=== PATIENT | male | born 1960 | race Caucasian/White ===

== ENCOUNTER 2021-10-21 03:16 | Inpatient (IN) | payer OTHER ==
[~2021-10-21] VITALS: Ht 182.9 cm; Wt 108.9 kg
[2021-10-21 07:00] LABS: HEMOGLOBIN 15.5 gm/dl (14.0-17.5); RED BLOOD COUNT 4.82 M/UL (4.20-5.50); WHITE BLOOD COUNT 8.9 K/UL (4.5-11.0)
[2021-10-21 07:29] LABS: BUN/CREATININE RATIO 15 (0-10)
[2021-10-21] MEDS ORDERED: GLIPIZIDE ER10 MG PO (14:20)
[2021-10-21] MEDS ORDERED: TIZANIDINE HCL4 MG PO (14:21)
--- NOTE | 2021-10-21 15:16 | NUR ---
1420: PT ARRIVED ON FLOOR AND LEFT ROOM IMMEDIATELY AND REMOVED IV HIMSELF. PT STATES HIS GIRLFRIEND IS ON THE 4TH FLOOR AND HE NEEDS TO BE DOWN THERE WITH HER. 1425: PT CAME BACK TO ROOM AND STATED HE WOULD STAY IN THE ROOM TO GET BP, ADMISSION HISTORY AND TO TALK TO THE DOCTOR. EDUCATED THE PATIENT ON NOT LEAVING THE FLOOR DUE TO SYMPTOMS. 1445: EDUCATED PT ON NOT LEAVING FLOOR DUE TO SYMPTOMS. PT VERBALIZED UNDERSTANDING ANS SEVERITY OF SYMPTOMS. 1512: PT LEFT FLOOR TO SEE HIS GIRLFRIEND ON ANOTHER FLOOR. PT CURRENTLY OFF FLOOR.
[2021-10-22 02:35] LABS: HEMOGLOBIN 15.8 gm/dl (14.0-17.5); RED BLOOD COUNT 4.68 M/UL (4.20-5.50); WHITE BLOOD COUNT 10.9 K/UL (4.5-11.0)
[2021-10-22 03:12] LABS: BUN/CREATININE RATIO 14 (0-10)
--- NOTE | 2021-10-22 17:30 | NUR ---
1724:Pt had 7BR of nonsustained SVT. MD notified.
[2021-10-24 04:23] LABS: HEMOGLOBIN 17.1 gm/dl (14.0-17.5); RED BLOOD COUNT 5.07 M/UL (4.20-5.50); WHITE BLOOD COUNT 11.9 K/UL (4.5-11.0)
[2021-10-24 04:54] LABS: BUN/CREATININE RATIO 21 (0-10)
[2021-10-24] MEDS ORDERED: ATORVASTATIN CA20 MG PO (17:30)
[2021-10-24] MEDS ORDERED: ASPIRIN EC81 MG PO (17:30)
[2021-10-24] MEDS ORDERED: LOPRESSOR 25 MG25 MG PO (17:30)
[2021-10-24 23:15] LABS: HEMOGLOBIN 15.7 gm/dl (14.0-17.5); RED BLOOD COUNT 4.67 M/UL (4.20-5.50); WHITE BLOOD COUNT 14.5 K/UL (4.5-11.0)
[2021-10-24 23:36] LABS: BUN/CREATININE RATIO 24 (0-10)
[2021-10-25 02:34] LABS: HEMOGLOBIN 15.2 gm/dl (14.0-17.5); RED BLOOD COUNT 4.57 M/UL (4.20-5.50); WHITE BLOOD COUNT 13.1 K/UL (4.5-11.0)
[2021-10-25 03:20] LABS: BUN/CREATININE RATIO 28 (0-10)
[2021-10-25] MEDS ORDERED: AMOX TR-K CLV1 EAC4 PO (08:25)
[2021-10-25] MEDS ORDERED: ATORVASTATIN CA20 MG PO (08:25)
[2021-10-25] MEDS ORDERED: BRILINTA 90 MG90 MG PO (08:25)
[2021-10-25] MEDS ORDERED: CARVEDILOL3.125 MG PO (08:25)
[2021-10-26] MEDS ORDERED: CEFUROXIME500 MG PO (16:43)
== END 2021-10-25 14:18 | disposition home or self-care (01) | DRG 246 ==
LOC: ER1 03:16 → CDU 12:36 → M/S 12:36 → PROG CARE 10-24 16:22
PROVIDERS: Internal Medicine Interventional Cardiology; Physician Assistant; ADMIT Internal Medicine
PROC: B24BZZZ Ultrasonography of Heart with Aorta (ICD-10-PCS; 2021-10-22)
PROC: 027034Z Dilation of Coronary Artery, One Artery with Drug-eluting Intraluminal Device, Percutaneous Approach (ICD-10-PCS; principal; 2021-10-24)
PROC: 4A023N7 Measurement of Cardiac Sampling and Pressure, Left Heart, Percutaneous Approach (ICD-10-PCS; 2021-10-24)
PROC: B2111ZZ Fluoroscopy of Multiple Coronary Arteries using Low Osmolar Contrast (ICD-10-PCS; 2021-10-24)
DX: I21.4 Non-ST elevation (NSTEMI) myocardial infarction (principal); J18.9 Pneumonia, unspecified organism; I42.9 Cardiomyopathy, unspecified; I47.1 Supraventricular tachycardia; F91.1 Conduct disorder, childhood-onset type; E11.9 Type 2 diabetes mellitus without complications; M06.9 Rheumatoid arthritis, unspecified; G89.29 Other chronic pain; M54.9 Dorsalgia, unspecified; E66.01 Morbid (severe) obesity due to excess calories; I25.10 Atherosclerotic heart disease of native coronary artery without angina pectoris; F17.210 Nicotine dependence, cigarettes, uncomplicated; R45.1 Restlessness and agitation; B19.20 Unspecified viral hepatitis C without hepatic coma; Z91.14 Patient's other noncompliance with medication regimen; Z95.5 Presence of coronary angioplasty implant and graft; I25.2 Old myocardial infarction; Z82.49 Family history of ischemic heart disease and other diseases of the circulatory system; Z80.9 Family history of malignant neoplasm, unspecified; Z79.01 Long term (current) use of anticoagulants; Z79.82 Long term (current) use of aspirin; Z88.2 Allergy status to sulfonamides; Z68.32 Body mass index [BMI] 32.0-32.9, adult
CPT/HCPCS: ECHO; 36415; 70450; 71045; 80048; 80053; 80061; 82550; 82553; 82962; 83036; 83735; 83880; 84484; 85025; 85610; 85730; 93005; 93306; 93880; 99152; 99153; 99285; C1725; C1769; C1874; C1887; C9600; G0378; J1644; J2250; J2270; J2920; J3010; J3246; J3475; J7040; Q9967

== ENCOUNTER 2021-10-26 01:44 | Emergency (ER) | payer OTHER ==
[~2021-10-26 01:44] MED LIST: AMOX TR-K CLV1 EAC4 PO; ASPIRIN EC81 MG PO; ATORVASTATIN CA20 MG PO; BRILINTA 90 MG90 MG PO; CARVEDILOL3.125 MG PO; GLIPIZIDE ER10 MG PO; LOPRESSOR 25 MG25 MG PO; TIZANIDINE HCL4 MG PO
[2021-10-26 02:41] LABS: HEMOGLOBIN 15.9 gm/dl (14.0-17.5); RED BLOOD COUNT 4.73 M/UL (4.20-5.50); WHITE BLOOD COUNT 11.5 K/UL (4.5-11.0)
[2021-10-26 03:08] LABS: BUN/CREATININE RATIO 28 (0-10)
[2021-10-26] MEDS ORDERED: CEFUROXIME500 MG PO (16:43)
== END 2021-10-26 04:15 | disposition left against medical advice (07) ==
LOC: ER1 01:44
DX: E11.65 Type 2 diabetes mellitus with hyperglycemia (principal); R00.2 Palpitations; I25.10 Atherosclerotic heart disease of native coronary artery without angina pectoris; F17.200 Nicotine dependence, unspecified, uncomplicated; I51.9 Heart disease, unspecified; Z79.84 Long term (current) use of oral hypoglycemic drugs; Z79.82 Long term (current) use of aspirin; Z88.8 Allergy status to other drugs, medicaments and biological substances
CPT/HCPCS: 80053; 82550; 82553; 84484; 85025; 93005; 99283

== ENCOUNTER 2021-10-26 13:49 | Emergency (ER) | payer OTHER ==
[2021-10-26 15:45] LABS: HEMOGLOBIN 13.9 gm/dl (14.0-17.5); RED BLOOD COUNT 4.18 M/UL (4.20-5.50); WHITE BLOOD COUNT 9.7 K/UL (4.5-11.0)
[2021-10-26 16:04] LABS: BUN/CREATININE RATIO 19 (0-10)
[2021-10-26] MEDS ORDERED: CEFUROXIME500 MG PO (16:43)
== END 2021-10-26 19:00 | disposition home or self-care (01) ==
LOC: ER1 13:49
PROVIDERS: Preventive Medicine Occupational Medicine
DX: R07.89 Other chest pain (principal); I25.10 Atherosclerotic heart disease of native coronary artery without angina pectoris; Z95.5 Presence of coronary angioplasty implant and graft
CPT/HCPCS: 36600; 71045; 80053; 80307; 81001; 82140; 82550; 82553; 82803; 83690; 83880; 84484; 85025; 85652; 86140; 87086; 93005; 99285; G0480

== ENCOUNTER 2021-11-03 18:21 | Emergency (ER) | payer OTHER ==
[~2021-11-03 18:21] MED LIST changes: +CEFUROXIME500 MG PO
[2021-11-03 19:39] LABS: HEMOGLOBIN 14.8 gm/dl (14.0-17.5); RED BLOOD COUNT 4.41 M/UL (4.20-5.50); WHITE BLOOD COUNT 9.7 K/UL (4.5-11.0)
[2021-11-03 19:58] LABS: BUN/CREATININE RATIO 16 (0-10)
== END 2021-11-03 20:40 | disposition left against medical advice (07) ==
LOC: ER1 18:21
PROVIDERS: Family Medicine
DX: R06.00 Dyspnea, unspecified (principal); I51.9 Heart disease, unspecified; E11.9 Type 2 diabetes mellitus without complications; F17.200 Nicotine dependence, unspecified, uncomplicated; Z88.2 Allergy status to sulfonamides; Z88.8 Allergy status to other drugs, medicaments and biological substances
CPT/HCPCS: 71045; 80053; 82550; 82553; 83880; 84484; 85025; 93005; 99283